=== PATIENT | male | born 1945 | race Hispanic/Latino ===

== ENCOUNTER 2017-07-11 21:26 | Emergency (ER) | payer OTHER ==
[~2017-07-11] VITALS: Ht 160 cm; Wt 60.9 kg
[2017-07-11 23:21] VITALS: BP 137/87
== END 2017-07-11 23:15 | disposition home or self-care (01) ==
LOC: EME 21:26 → EDBD 21:26 → EME 23:15
DX: K40.90 Unilateral inguinal hernia, without obstruction or gangrene, not specified as recurrent (principal); I10 Essential (primary) hypertension; Z87.891 Personal history of nicotine dependence
CPT/HCPCS: 80053; 81003; 83690; 84484; 85027; 99281; 99284

== ENCOUNTER 2017-07-27 09:09 | Day surgery (SDC) | payer OTHER ==
[~2017-07-27] VITALS: Ht 165.1 cm; Wt 60.8 kg
[~2017-07-27 09:09] MED LIST: DITROPAN5 MG PO; LOZOL1.25 MG PO; NORVASC10 MG PO; ZESTRIL40 MG PO
[2017-07-27 09:47] VITALS: BP 117/72
[2017-07-27] MEDS ORDERED: OXYCODONE HCL5 MG PO (13:08)
[2017-07-27] MEDS ORDERED: HYDROCODON-ACE1 EA11 PO (13:08)
[2017-07-27 13:49] VITALS: BP 121/58
[2017-07-27 14:50] VITALS: BP 131/62
== END 2017-07-27 14:50 | disposition home or self-care (01) ==
LOC: SDC
PROC: 0YU50JZ Supplement Right Inguinal Region with Synthetic Substitute, Open Approach (ICD-10-PCS; principal; 2017-07-27)
DX: K40.90 Unilateral inguinal hernia, without obstruction or gangrene, not specified as recurrent (principal); I10 Essential (primary) hypertension
CPT/HCPCS: 93005; C1781; J0131; J1100; J1170; J2405; S0020; S0074